=== PATIENT | male | born 2000 | race American Indian/Alaskan Native ===

== ENCOUNTER 2019-01-01 04:36 | Emergency (ER) | payer SELFPAY ==
[2019-01-01 04:48] VITALS: BP 113/71
[2019-01-01] MEDS ORDERED: LIDOCAINE (2%) 20 MG/1 ML VIAL 20 ML MDV INFILTRATI ONE (04:58)
[2019-01-01] MEDS ORDERED: ACETAMINOPHEN W/CODEINE 300-30 MG TAB PO ONE (05:25)
[2019-01-01] MEDS ORDERED: IBUPROFEN 400 MG TAB PO ONE (05:25)
--- NOTE | 2019-01-01 06:20 | Emergency Department Report ---
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 Patient denies loss of consciousness, syncope, dizziness, nausea, vomiting, change in vision, headache, neck pain, numbness and tingling or weakness of upper extremities bilaterally. Patient states that he is up-to-date with his tetanus vaccination. -: Sudden, hour(s) (1) Location: scalp (frontal scalp lacerations) Place: home Patient Tetanus UTD: Yes Context: accidental, fall Associated Symptoms: pain. denies: loss of feeling/numbness, suspect foreign body present, unable to move injured part, weakness followed by dizziness, nausea/vomiting, fever, other - Related Data Previous Rx's Medication Instructions Recorded Last Taken Type Ibuprofen [Motrin] 400 mg PO Q8H PRN #20 tablet 01/01/19 Unknown Rx cephALEXin [Keflex] 500 mg PO Q12HR #20 cap 01/01/19 Unknown Rx Allergies Allergy/AdvReac Type Severity Reaction Status Date / Time No Known Allergies Allergy Verified 01/01/19 05:34 ED Review of Systems ROS: Stated complaint: LAC TO FOREHEAD/CUT BY GLASS Other details as noted in HPI ED Past Medical Hx - Past Medical History Previous Medical History?: No - Surgical History Past Surgical History?: Yes Additional Surgical History: Biopsy of knee - Social History Smoking Status: Current Every Day Smoker Substance Use Type: Marijuana - Medications Home Medications: Home Medications Medication Instructions Recorded Confirmed Last Taken Type Ibuprofen [Motrin] 400 mg PO Q8H PRN #20 tablet 01/01/19 Unknown Rx cephALEXin [Keflex] 500 mg PO Q12HR #20 cap 01/01/19 Unknown Rx ED Physical Exam - General Limitations: No Limitations ED Course Vital Signs 01/01/19 04:44 Temperature 98.1 F Pulse Rate 80 Respiratory 20 Rate Blood Pressure 113/71 O2 Sat by Pulse 98 Oximetry Critical care attestation.: If time is entered above; I have spent that time in minutes in the direct care of this critically ill patient, excluding procedure time. ED Disposition Clinical Impression: Laceration of scalp Qualifiers: Encounter type: initial encounter Qualified Code(s): S01.01XA - Laceration without foreign body of scalp, initial encounter Contusion of scalp Qualifiers: Encounter type: initial encounter Qualified Code(s): S00.03XA - Contusion of scalp, initial encounter Disposition: TO HOME OR SELFCARE Is pt being admited?: No Does the pt Need Aspirin: No Condition: Stable Instructions: Laceration (ED), Suture Care (ED), Contusion in Adults (ED) Additional Instructions: Take medications with food, drink plenty of fluids and follow-up with your primary care physician in 7-10 days for reevaluation. Return to the ED in 8-10 days for suture removal. Otherwise return to the ED immediately if symptoms get worse. Prescriptions: cephALEXin [Keflex] 500 mg PO Q12HR #20 cap Ibuprofen [Motrin] 400 mg PO Q8H PRN #20 tablet PRN Reason: Pain , Severe (7-10) Referrals: PRIMARY CARE,MD [Primary Care Provider] - 3-5 Days Time of Disposition: 06:19 Print Language: BHUTANESE
--- NOTE | 2019-01-01 06:26 | Emergency Department Report ---
- General Chief Complaint: Wound/Laceration Stated Complaint: LAC TO FOREHEAD/CUT BY GLASS Source: patient Mode of arrival: Ambulatory Limitations: No Limitations - History of Present Illness Initial Comments: Patient is a 18-year-old -[place] male with no past medical history except DVT and PE who presents to the ED with frontal scalp bleeding laceration and pain after he slipped on the floor while leaving a bathtub and landed on the floor hitting his face against the tiles on the floor about 1 hour ago. Patient denies loss of consciousness, dizziness, headache, chest pain, shortness of tiffany ath, back pain, syncope, seizures, neck pain, change in vision, nausea, vomiting, back pain or numbness or tingling of upper extremities bilaterally. -: Sudden Location: scalp (frontal scalp lacerations) Place: home Associated Symptoms: pain. denies: loss of feeling/numbness, suspect foreign body present, unable to move injured part, weakness followed by dizziness, nausea/vomiting, fever, other - Related Data Previous Rx's Medication Instructions Recorded Last Taken Type Ibuprofen [Motrin] 400 mg PO Q8H PRN #20 tablet 01/01/19 Unknown Rx cephALEXin [Keflex] 500 mg PO Q12HR #20 cap 01/01/19 Unknown Rx Allergies Allergy/AdvReac Type Severity Reaction Status Date / Time No Known Allergies Allergy Verified 01/01/19 05:34 ED Review of Systems ROS: Stated complaint: LAC TO FOREHEAD/CUT BY GLASS Other details as noted in HPI Constitutional: denies: chills, fever Eyes: denies: eye pain, eye discharge, vision change ENT: denies: ear pain, throat pain Respiratory: denies: cough, shortness of breath, wheezing Cardiovascular: denies: chest pain, palpitations Endocrine: no symptoms reported Gastrointestinal: denies: abdominal pain, nausea, diarrhea Genitourinary: denies: urgency, dysuria Musculoskeletal: denies: back pain, joint swelling, arthralgia Skin: other (frontal scalp bleeding laceration). denies: rash, lesions Neurological: denies: headache, weakness, paresthesias Psychiatric: denies: anxiety, depression Hematological/Lymphatic: denies: easy bleeding, easy bruising ED Past Medical Hx - Past Medical History Previous Medical History?: No - Surgical History Past Surgical History?: Yes Additional Surgical History: Biopsy of knee - Social History Smoking Status: Current Every Day Smoker Substance Use Type: Marijuana - Medications Home Medications: Home Medications Medication Instructions Recorded Confirmed Last Taken Type Ibuprofen [Motrin] 400 mg PO Q8H PRN #20 tablet 01/01/19 Unknown Rx cephALEXin [Keflex] 500 mg PO Q12HR #20 cap 01/01/19 Unknown Rx ED Physical Exam - General Limitations: No Limitations General appearance: alert, in no apparent distress - Head Head exam: Present: other (frontal scalp 3 cm bleeding laceration) - Eye Eye exam: Present: normal appearance, PERRL, EOMI - ENT ENT exam: Present: normal exam, normal orophraynx, mucous membranes moist, TM's normal bilaterally, normal external ear exam - Neck Neck exam: Present: normal inspection, full ROM. Absent: tenderness - Respiratory Respiratory exam: Present: normal lung sounds bilaterally. Absent: respiratory distress, wheezes, rales, stridor, accessory muscle use, decreased breath sounds, prolonged expiratory - Cardiovascular Cardiovascular Exam: Present: regular rate, normal rhythm, normal heart sounds. Absent: systolic murmur, diastolic murmur, rubs, gallop - GI/Abdominal GI/Abdominal exam: Present: soft, normal bowel sounds. Absent: tenderness, guarding, rebound - Rectal Rectal exam: Present: deferred - Extremities Exam Extremities exam: Present: normal inspection, full ROM, normal capillary refill - Back Exam Back exam: Present: normal inspection, full ROM. Absent: muscle spasm, reina kiki tenderness - Neurological Exam Neurological exam: Present: alert, oriented X3, CN II-XII intact, normal gait, reflexes normal - Psychiatric Psychiatric exam: Present: normal affect, normal mood - Skin Skin exam: Present: warm, dry, intact, normal color, other (bleeding 3 cm la ceration on the frontal scalp). Absent: rash ED Course Vital Signs 01/01/19 04:44 Temperature 98.1 F Pulse Rate 80 Respiratory 20 Rate Blood Pressure 113/71 O2 Sat by Pulse 98 Oximetry - Laceration /Wound Repair Anterior Head Wound Location: head (frontal scalp bleeding laceration) Wound Length (cm): 3 Wound's Depth, Shape: superficial, linear Wound Explored: foreign body removed Irrigated w/ Saline (ccs): 100 Betadine Prep?: Yes Anesthesia: 1% Lidocaine Volume Anesthetic (ccs): 5 Wound Debrided: extensive Wound Repaired With: sutures Suture Size/Type: 5:0 Number of Sutures: 9 Layer Closure?: No Sterile Dressing Applied?: No Progress: Patient tolerated procedure well and was discharged home on pain medications and prophylactic antibiotics and advised to return to the ED in 8-10 days for suture removal or return to the ED immediately if symptoms get worse. ED Medical Decision Making - Medical Decision Making This is a 18-year-old male who presented to the ED with frontal scalp bleeding laceration after he slipped on a wet floor on the left fell down on the floor hitting his face against tiles on the floor with no loss of consciousness, dizziness or headache as well as nausea and vomiting. In the ED, patient is alert and oriented 3 and is not in distress. Patient was treated for pain in the ED and frontal scalp bleeding laceration was cleaned thoroughly with foreign debris removed from the wound after thorough debridement. Patient tolerated the suturing procedure well and was discharged home on pain medications and prophylactic antibiotics and advised to return to the ED immediately if symptoms get worse, otherwise otherwise return to the ED or to his primary care physician in 8-10 days for suture removal. - Differential Diagnosis scalp laceration; scalp contusion; facial contusion; scalp abrasion Critical care attestation.: If time is entered above; I have spent that time in minutes in the direct care of this critically ill patient, excluding procedure time. ED Disposition Clinical Impression: Laceration of scalp Qualifiers: Encounter type: initial encounter Qualified Code(s): S01.01XA - Laceration without foreign body of scalp, initial encounter Contusion of scalp Qualifiers: Encounter type: initial encounter Qualified Code(s): S00.03XA - Contusion of scalp, initial encounter Disposition: DC- TO HOME OR SELFCARE Is pt being admited?: No Does the pt Need Aspirin: No Condition: Stable Instructions: Suture Care (ED), Laceration (ED), Contusion in Adults (ED) Additional Instructions: Take medications with food, drink plenty of fluids and follow-up with your primary care physician in 7-10 days for reevaluation. Return to the ED in 8-10 days for suture removal. Otherwise return to the ED immediately if symptoms get worse. Prescriptions: cephALEXin [Keflex] 500 mg PO Q12HR #20 cap Ibuprofen [Motrin] 400 mg PO Q8H PRN #20 tablet PRN Reason: Pain , Severe (7-10) Referrals: PRIMARY CARE,MD [Primary Care Provider] - 3-5 Days Time of Disposition: 06:28 Print Language: DIVEHI
== END 2019-01-01 06:36 | disposition home or self-care (01) ==
LOC: ED 04:36
DX: S01.02XA Laceration with foreign body of scalp, initial encounter (principal); F17.200 Nicotine dependence, unspecified, uncomplicated; F12.10 Cannabis abuse, uncomplicated; Z86.711 Personal history of pulmonary embolism; Z86.718 Personal history of other venous thrombosis and embolism; W01.0XXA Fall on same level from slipping, tripping and stumbling without subsequent striking against object, initial encounter; Y93.89 Activity, other specified; Y92.009 Unspecified place in unspecified non-institutional (private) residence as the place of occurrence of the external cause; Y99.8 Other external cause status

== ENCOUNTER 2019-01-11 13:09 | Emergency (ER) | payer SELFPAY ==
--- NOTE | 2019-01-11 14:06 | Emergency Department Report ---
Suture/Staple Removal - HPI Chief Complaint: Laceration/Recheck/Suture Stated Complaint: sutture removal Time Seen by Provider: 01/11/19 14:05 When Sutures or [place] Placed: 8-10 Days Ago Wound Location: forehead ED Review of Systems ROS: Stated complaint: sutture removal Other details as noted in HPI Constitutional: denies: chills, fever Respiratory: denies: cough, shortness of breath, wheezing Cardiovascular: denies: chest pain, palpitations Gastrointestinal: denies: abdominal pain, nausea, diarrhea Skin: lesions (laceration with sutures to forehead). denies: rash Neurological: denies: headache, weakness, paresthesias Psychiatric: denies: anxiety, depression ED Past Medical Hx - Past Medical History Previous Medical History?: No - Surgical History Past Surgical History?: Yes Additional Surgical History: Biopsy of knee - Social History Smoking Status: Current Every Day Smoker Substance Use Type: Marijuana - Medications Home Medications: Home Medications Medication Instructions Recorded Confirmed Last Taken Type Ibuprofen [Motrin] 400 mg PO Q8H PRN #20 tablet 01/01/19 Unknown Rx cephALEXin [Keflex] 500 mg PO Q12HR #20 cap 01/01/19 Unknown Rx Suture Removal Exam - Exam General: Vital signs noted. No distress. Alert and acting appropriately. Wound: No Pathologic Erythema, No Tenderness, No Drainage, No Pus, No Wound Dehiscence Other Systems: All other systems reviewed and are unremarkable. ED Recheck MDM - Differential Diagnosis Suture/Staple Removal - Medical Decision Making 18-year-old male that presents to ER for suture removal. Patient is stable and was examined by me. Sutures placed 10 days ago. Patient registered. Nursing staff called patient x 2 times with no answer prior. Patient eloped triage area prior to suture removal. Critical care attestation.: If time is entered above; I have spent that time in minutes in the direct care of this critically ill patient, excluding procedure time. ED Disposition Clinical Impression: Left against medical advice Disposition: D Is pt being admited?: No Condition: Stable Referrals: PRIMARY CARE, [Primary Care Provider] - 3-5 Days
== END 2019-01-11 17:32 | disposition left against medical advice (07) ==
LOC: ED 13:09
DX: S01.81XD Laceration without foreign body of other part of head, subsequent encounter (principal); F12.10 Cannabis abuse, uncomplicated; F17.200 Nicotine dependence, unspecified, uncomplicated; Z98.890 Other specified postprocedural states; Z79.1 Long term (current) use of non-steroidal anti-inflammatories (NSAID); Z79.899 Other long term (current) drug therapy; X58.XXXD Exposure to other specified factors, subsequent encounter